=== PATIENT | female | born 1955 | race Caucasian/White ===

== ENCOUNTER 2020-03-31 13:55 | Emergency (ER) | payer OTHER, SELFPAY ==
--- NOTE | ~2020-03-31 | XR_ITS ---
EXAMINATION: XR chest 1V portable EXAM DATE: 03/31/2020 14:32 INDICATION: Shortness of breath. TECHNIQUE: Portable AP frontal chest x-ray was obtained. Comparison is made to prior examination from 09/20/2017. FINDINGS: The lungs are clear. There are no pleural effusions. Cardiac silhouette is prominent but magnified on this AP technique. There is no pneumothorax suspected. Mild thoracic spondylosis. IMPRESSION: No acute cardiopulmonary findings. Reviewed, dictated and finalized at location A. NEERING OFFICER
--- NOTE | ~2020-03-31 | CT_ITS ---
EXAMINATION: CTA chest PE protocol EXAM DATE: 03/31/2020 16:24 INDICATION: Shortness of breath, elevated d-dimer. TECHNIQUE: Spiral CTA of the chest (pulmonary arteries) was performed with 100 cc Omnipaque 350 intr avenous contrast injection. Images were acquired during the pulmonary arterial phase. Coronal maxi mum intensity projection 3D-reconstructions were created by the technologist on dedicated workstation . Axial, coronal and sagittal reformatted images were reviewed. The dose-length product (DLP) for t his examination was 725.99 mGy-cm. The exposure was tailored according to patient size (auto mA exp osure control), and iterative reconstruction (ASIR) was used as additional dose reduction technique. There is no prior study for comparison. FINDINGS: Pulmonary arteries are well opacified and without intraluminal filling defects. The main, central pulmonary arteries are dilated which can indicate elevated pulmonary arterial pressure, pulmo nary arterial hypertension. No thoracic aortic dissection. There is a right infrahilar 8 mm nodule, indeterminate. Recommend 3 month follow-up chest CT. There i s some dependent right lower lobe groundglass opacity, appearance most consistent with atelectasis. C an't exclude developing acute infectious process given several other small vague regions of groundgla ss opacity elsewhere. There are no pleural or pericardial effusions. Tracheobronchial tree is keith nt. There is no mediastinal, hilar or axillary lymphadenopathy. There is no pneumothorax. There is cardiomegaly. No evidence of coronary arterial calcification. There are cholecystectomy clips. There is mild to moderate thoracic spondylosis without osteoblastic or osteolytic lesions identified . Multinodular right thyroid lobe. Patient may have had left thyroidectomy. IMPRESSION: 1. Indeterminate right infrahilar subcentimeter nodule; 3 month follow-up chest CT recommended. 2. Groundglass opacity mostly in dependent aspect right lower lobe, with some other smaller ill-defi ney regions bilaterally. Atelectasis versus developing acute infectious process, possibly COVID pneum onia. 3. Cardiomegaly. 4. Multinodular right thyroid lobe. Reviewed, dictated and finalized at location A. NSED MASS [employer] ESTATE APPRAISER IMPRESSION: 1. Indeterminate right infrahilar subcentimeter nodule; 3 month follow-up ches t CT recommended. 2. Groundglass opacity mostly in dependent aspect right lower lobe, with some other smaller ill-defined regions bilaterally. Atelectasis versus developing ac gladys infectious process, possibly COVID pneumonia. 3. Cardiomegaly. 4. Multinodular right thyroid lobe.
[2020-03-31 13:58] VITALS: BP 179/94; PULSE 82; RESP 18; TEMP 36.6; O2SAT 94
--- NOTE | 2020-03-31 14:11 | ECG_ITS ---
Measurements Intervals [place] Rate: 83 P: 59 WA: 203 QRS: -54 QRSD: 124 T: 78 QT: 404 QTc: 476 Interpretive Statements SINUS RHYTHM ATRIAL PREMATURE COMPLEXES LEFT AXIS DEVIATION INTRAVENTRICULAR CONDUCTION DELAY LEFT VENTRICULAR HYPERTROPHY AND ST-T CHANGE POOR R WAVE PROGRESSION, ANTERIOR LEADS BASELINE ARTIFACT- I, II, III, AVR, AVL, AVF, V1-V2 ABNORMAL ECG Electronically Signed On 03-31-2020 15:27:33 PATIENT REGISTRATION CLERK by Win Short D.O.
--- NOTE | 2020-03-31 14:40 | ED.SOB ---
HPI - SOB/Dyspnea General Chief Complaint: Shortness of Breath/Dyspnea Stated Complaint: short of breath Time Seen by Provider: 03/31/20 14:03 Source: patient and family Mode of arrival: ambulatory Limitations: no limitations History of Present Illness HPI Narrative: Patient is 65 years old white female, works as a nurse in our hospital woke up at 9 AM today with shortness of breath, intermittent, currently a little bit better than few hours ago. Patient report having sinus infection 1 week ago in the form of headache, nasal drainage postnasal discharge and congestion. Patient been on [id number] medication without significant improvement. Patient been coughing every now and then with whitish sputum. Patient declined Covid vaccine, denies history of COVID-19 infection but she have a lot of exposure to patients with COVID-19 infection.. Patient denies any fever, chills, nausea, vomiting, chest pain, back pain. History of hypertension and hypothyroidism. Patient does not smoke or drink or uses drugs. Related Data Allergies Allergy/AdvReac Type Severity Reaction Status Date / Time prochlorperazine Allergy Unknown Anaphylaxis Verified 03/31/20 14:18 Sulfa (Sulfonamide Allergy Unknown Anxiety Verified 03/31/20 14:18 Antibiotics) Review of Systems Review of Systems: Narrative: CONSTITUTIONAL: Denies fever, chills, or sweats. EYES: Denies visual changes, redness, or discharge. ENT: Denies rhinorrhea, congestion, sore throat, or otalgia. CARDIOVASCULAR: Denies chest pain, palpitations, or edema. RESPIRATORY: Denies cough or dyspnea. GASTROINTESTINAL: Denies abdominal pain, nausea, vomiting, or diarrhea. GENITOURINARY: Denies dysuria or hematuria. SKIN: Denies rash or itching. MUSCULOSKELETAL: Denies back pain, joint pain, or myalgia. NEUROLOGIC: Denies headache, numbness, or weakness. PSYCHIATRIC: Denies anxiety or depression. [facility] Family History Family History Grandparent Hypertension Family history of elevated blood lipids Family history of malignant neoplasm of breast Family history of coronary artery disease Diabetes mellitus Father Family history of coronary artery disease Social History Social History Smoking status: Never smoker Alcohol intake: never Gender identity (if verbalized by the patient): Female Exam Narrative: Exam Narrative: General appearance: Well-developed, well-nourished Skin: Normal color Head: Normocephalic, nontraumatic Eyes: Clear conjunctiva ENT: Oropharynx normal, ears normal, nose normal Neck: Supple, nontender Chest and respiratory: Airway patent, no respiratory distress, no accessory muscle use, slight diminution and dry rales of the right lung. Heart: Regular rate/rhythm Abdomen: Soft, nontender, no organomegaly, quiet bowel sounds Vascular: Normal peripheral pulses, normal capillary refill. Musculoskeletal: Normal range of motion, nontender back Neurologic: Alert and oriented ?3, BUDGET COORDINATOR is normal as tested, no gross motor deficit Course Course Emergency Course: Stable Vital Signs Vital signs: Vital Signs Temperature 36.6 C 03/31/20 13:58 Pulse Rate 82 03/31/20 13:58 Respiratory Rate 18 03/31/20 13:58 Blood Pressure 179/94 H 03/31/20 13:58 Pulse Oximetry 94 03/31/20 13:58 Temperature 36.6 C 03/31/20 13:58 Pulse Rate 81 03/31/20 17:20 Respiratory Rate 17 03/31/20 17:20 Blood Pressure 169/84 H 03/31/20 17:20 Pulse Oximetry 100 03/31/20 17:20 MDM - SOB/Dyspnea MDM Narrative Medical decision making narrative: Patient presents with shortness of breat
[2020-03-31 14:42] LABS: Alveolar/Arterial O2 Gradient 52.6 mmHg; Base Excess ABG -3.4 mEq/l (+/-2.0); Fractional Inspired Oxygen 21 %; HCO3 ABG 17.4 mEq/l (22.0-26.0); Oxygen Content ABG 19.7 %vol (16.0-22.0); Oxygen Saturation ABG 95.9 % (95.0-100.0); Oxyhemoglobin 94.8 % THb (90.0-100.0); PO2 ABG 70.4 mmHg (80.0-100.0); PO2 FiO2 Ratio Arterial Blood 3.35 %; Total Hemoglobin 14.8 g/dL (12.0-18.0)
[2020-03-31 14:44] LABS: PCO2 ABG 22.3 mmHg (35.0-45.0); Site Drawn RIGHT RADIAL
[2020-03-31 14:45] LABS: Device ROOM AIR; Modified Allen's Test Pass
[2020-03-31 14:51] LABS: Basophils Percent Auto 0.4 % (0.2-1.2); Eosinophils Percent Auto 0.2 % (0-4.4); Hematocrit 43.1 % (37.0-47.0); Hemoglobin 14.4 g/dL (12.0-15.0); Immature Granulocyte Absolute 0.02 K/mm3 (0.00-0.031); Immature Granulocyte Percent A 0.4 % (0-0.5); Lymphocytes Absolute Auto 0.96 K/mm3 (0.9-3.2); Lymphocytes Percent Auto 18.6 % (18.3-44.2); Mean Corpuscular HGB Conc 33.4 g/dl (32-36); Mean Corpuscular Volume 86.7 fl (80-100); Monocytes Absolute Auto 0.5 K/mm3 (0.1-0.6); Monocytes Percent Auto 9.9 % (2.6-8.5); Neutrophils Absolute Auto 3.6 K/mm3 (1.3-6.7); Neutrophils Percent Auto 70.5 % (45.5-73.1); Platelet Count Result 228 k/mm3 (150-375); Red Blood Count 4.97 M/mm3 (4.2-5.4); Red Cell Distribution Width 13.4 % (11.5-14.5); White Blood Count 5.2 K/mm3 (4.5-10.0)
[2020-03-31 15:00] VITALS: BP 171/79; PULSE 79; RESP 18; O2SAT 97
[2020-03-31 15:00] LABS: INR 0.9; Partial Thromboplastin Time 28.9 SECONDS (22.3-36.8); Prothrombin Time 12.8 Seconds (11.1-14.7)
[2020-03-31 15:01] LABS: Alanine Aminotransferase 69 U/L (4-35); Albumin Level 3.9 g/dL (3.5-5.1); Alkaline Phosphatase 78 U/L (38-126); Anion Gap 8 mmol/L (8-16); Aspartate Amino Transferase 102 U/L (14-36); Bilirubin,Total 0.6 mg/dL (0.2-1.3); Blood Urea Nitrogen 10 mg/dL (7-17); Calcium 8.5 mg/dL (8.4-10.2); Carbon Dioxide 26 mmol/L (22-30); Chloride 105 mmol/L (98-107); Estimated CRCL calculation 68 ml/min; Estimated Glomerular Filt Rate > 60; Glucose 112 mg/dL (65-105); Magnesium 1.9 mg/dL (1.6-2.3); Potassium 3.2 mmol/L (3.4-5.0); Sodium 139 mmol/L (137-145)
[2020-03-31 15:03] LABS: D Dimer 2.21 ug/mL (<0.48)
[2020-03-31 15:14] LABS: NT Pro B Type Natriuretic Pept 228 PG/ML (5-100); Troponin I < 0.012 ng/mL (0.000-0.034)
[2020-03-31] MEDS: LORazepam INJ (*CRX) 2 MG/ML VIAL 1 MG IV PUSH (16:01)
--- NOTE | 2020-03-31 16:02 | ECG_ITS ---
Measurements Intervals [place] Rate: 78 P: 16 ID: 203 QRS: -56 QRSD: 125 T: 115 QT: 398 QTc: 454 Interpretive Statements SINUS RHYTHM BORDERLINE AV CONDUCTION DELAY LEFT ANTERIOR FASCICULAR BLOCK LEFT VENTRICULAR HYPERTROPHY AND ST-T CHANGE CANNOT RULE OUT SEPTAL INFARCT, AGE INDETERMINATE POOR R WAVE PROGRESSION, CONSIDER ANTERIOR INFARCT BORDERLINE ST-T WAVE ABNORMALITY- HIGH LATERAL LEADS BASELINE ARTIFACT- I, III, AVR, AVL, AVF ABNORMAL ECG Electronically Signed On 03-31-2020 21:22:10 SCORER HELPER by Win Short D.O.
[2020-03-31 16:07] LABS: Add Urine Microscopic? YES; Appearance Urine Clear (Clear); Bacteria Urine 2+ /hpf; Bilirubin Urine Negative (Negative); Blood Urine 1+ (Negative); Color Urine Yellow (Yellow); Glucose Urine UA Negative (Negative); Ketones Urine Negative (Negative); Leukocyte Esterase Ur 1+ LEU/UL (Negative); Mucus Urine Rare /lpf; Nitrate Urine Negative (Negative); Protein Urine Negative (Negative); RBC Urine 0-2 /hpf (0-2); Squamous Epithelial Cell Urine Occasional /hpf (Few); Urobilinogen Urine Negative mg/dL (<2.0)
[2020-03-31 17:20] VITALS: BP 169/84; PULSE 81; RESP 17; O2SAT 100
[2020-03-31 18:31] VITALS: BP 169/84; PULSE 81; RESP 17; O2SAT 100
[2020-04-01 19:32] LABS: SARS-CoV-2 RNA PCR Positive
== END 2020-03-31 18:14 | disposition home or self-care (01) ==
PROVIDERS: Emergency Provider Emergency Medicine; PCP Family Medicine
DX: U07.1 COVID-19 (principal); J06.9 Acute upper respiratory infection, unspecified; R91.1 Solitary pulmonary nodule; I10 Essential (primary) hypertension; E03.9 Hypothyroidism, unspecified; I49.1 Atrial premature depolarization; I45.9 Conduction disorder, unspecified; I51.7 Cardiomegaly; R94.31 Abnormal electrocardiogram [ECG] [EKG]; I44.4 Left anterior fascicular block
CPT/HCPCS: 36415; 36600; 71045; 71275; 80053; 81001; 82805; 83735; 83880; 84484; 85025; 85380; 85610; 85730; 87077; 87086; 87088; 87186; 87804; 93005; 96374; 99284; C9803; J2060; Q9967; U0003; U0005

== ENCOUNTER 2020-04-09 16:56 | Outpatient (CLI) | payer OTHER, SELFPAY ==
--- NOTE | ~2020-04-09 | XR_ITS ---
EXAMINATION: XR chest 2V DATE: 04/09/2020 17:24 INDICATION: Shortness of breath, COVID 19 TECHNIQUE: PA and lateral views of the chest are obtained. COMPARISON: 03/31/2020 FINDINGS: The lungs are free of acute opacities. There is no pleural effusion or pneumothorax. The ca rdiomediastinal silhouette is normal. There is moderate thoracic spondylosis. Cholecystectomy clips a re noted. IMPRESSION: 1. No acute cardiopulmonary abnormality. Reviewed, dictated and finalized at location A. UET SERVER
== END 2020-04-09 16:57 | disposition home or self-care (01) ==
PROVIDERS: PCP Family Medicine; Visit Provider Nurse Practitioner Family
DX: U07.1 COVID-19 (principal)
CPT/HCPCS: 71046

== ENCOUNTER 2022-07-17 11:06 | Outpatient (CLI) | payer OTHER, SELFPAY ==
[2022-07-17 11:33] LABS: Hematocrit 43.6 % (37.0-47.0); Hemoglobin 14.4 g/dL (12.0-15.0); Mean Corpuscular Hemoglobin 29.3 pg (26-34); Mean Corpuscular Volume 88.8 fl (80-100); Mean Platelet Volume 10.1 fl (7.4-10.4); Platelet Count Result 276 k/mm3 (150-375); Red Blood Count 4.91 M/mm3 (4.2-5.4); Red Cell Distribution Width 13.6 % (11.5-14.5); White Blood Count 7.5 K/mm3 (4.5-10.0)
[2022-07-17 11:41] LABS: Alanine Aminotransferase 23 U/L (6-35); Albumin Level 4.1 g/dL (3.5-5.1); Alkaline Phosphatase 58 U/L (38-126); Anion Gap 9 mmol/L (8-16); Aspartate Amino Transferase 32 U/L (14-36); Bilirubin,Total 0.4 mg/dL (0.2-1.3); Blood Urea Nitrogen 18 mg/dL (7-17); Calcium 9.2 mg/dL (8.4-10.2); Carbon Dioxide 27 mmol/L (22-30); Chloride 105 mmol/L (98-107); Cholesterol 137 mg/dL (0-200); Estimated Glomerular Filt Rate 55; Glucose 109 mg/dL (65-110); HDL Direct 37 mg/dL; Potassium 3.9 mmol/L (3.4-5.0); Sodium 141 mmol/L (137-145); Triglycerides 77 mg/dL (<150)
[2022-07-17 11:46] LABS: Hemoglobin A1C 5.7 % (<5.7)
[2022-07-17 11:52] LABS: LDL Cholesterol Direct 82 mg/dL
[2022-07-17 12:23] LABS: Free T4 Free Thyroxine 1.38 ng/mL (0.78-2.19)
== END 2022-07-17 11:07 | disposition home or self-care (01) ==
PROVIDERS: PCP Family Medicine; Visit Provider Nurse Practitioner Family
DX: R79.89 Other specified abnormal findings of blood chemistry (principal); I10 Essential (primary) hypertension; U07.1 COVID-19; E55.9 Vitamin D deficiency, unspecified
CPT/HCPCS: 36415; 80053; 80061; 82306; 83036; 84439; 84443; 85027

== ENCOUNTER 2023-06-21 10:13 | Outpatient (CLI) | payer MEDICARE, SELFPAY ==
[2023-06-21 10:44] LABS: Basophils Absolute Auto 0.1 K/mm3 (0.0-0.1); Basophils Percent Auto 1.2 % (0.2-1.2); Eosinophils Absolute Auto 0.2 K/mm3 (0-0.3); Eosinophils Percent Auto 2.6 % (0-4.4); Hematocrit 41.8 % (37.0-47.0); Hemoglobin 13.5 g/dL (12.0-15.0); Immature Granulocyte Absolute 0.02 K/mm3 (0.00-0.031); Immature Granulocyte Percent A 0.3 % (0-0.5); Lymphocytes Absolute Auto 2.02 K/mm3 (0.9-3.2); Lymphocytes Percent Auto 34.4 % (18.3-44.2); Mean Corpuscular HGB Conc 32.3 g/dl (32-36); Mean Corpuscular Hemoglobin 28.7 pg (26-34); Mean Corpuscular Volume 88.9 fl (80-100); Monocytes Absolute Auto 0.5 K/mm3 (0.1-0.6); Monocytes Percent Auto 7.7 % (2.6-8.5); Neutrophils Absolute Auto 3.2 K/mm3 (1.3-6.7); Neutrophils Percent Auto 53.8 % (45.5-73.1); Platelet Count Result 260 k/mm3 (150-375); Red Cell Distribution Width 13.7 % (11.5-14.5); White Blood Count 5.9 K/mm3 (4.5-10.0)
[2023-06-21 11:04] LABS: Alanine Aminotransferase 18 U/L (6-35); Albumin Level 3.9 g/dL (3.5-5.1); Alkaline Phosphatase 66 U/L (38-126); Anion Gap 6 mmol/L (4-12); Aspartate Amino Transferase 34 U/L (14-36); Bilirubin,Total 0.6 mg/dL (0.2-1.3); Blood Urea Nitrogen 12 mg/dL (7-17); Calcium 9.3 mg/dL (8.4-10.2); Carbon Dioxide 26 mmol/L (22-30); Chloride 107 mmol/L (98-107); Cholesterol 150 mg/dL (0-200); Estimated Glomerular Filt Rate > 60; Glucose 103 mg/dL (65-110); HDL Direct 38 mg/dL; Magnesium 2.1 mg/dL (1.6-2.3); Sodium 139 mmol/L (137-145); Triglycerides 105 mg/dL (<150)
[2023-06-21 11:14] LABS: LDL Cholesterol Direct 94 mg/dL
[2023-06-21 12:29] LABS: Folic Acid 11.1 ng/mL (2.76->20)
== END 2023-06-21 10:14 | disposition home or self-care (01) ==
PROVIDERS: PCP Family Medicine; Visit Provider Nurse Practitioner Adult Health
DX: R79.89 Other specified abnormal findings of blood chemistry (principal); I10 Essential (primary) hypertension; Z13.220 Encounter for screening for lipoid disorders; R25.2 Cramp and spasm; E55.9 Vitamin D deficiency, unspecified
CPT/HCPCS: 36415; 80053; 80061; 82306; 82607; 82746; 83735; 84443; 85025